=== PATIENT | female | born 1980 | race African-American/Black ===

== ENCOUNTER 2017-03-19 11:45 | Emergency (ER) | payer MEDICAID ==
[~2017-03-19] VITALS: Ht 160 cm; Wt 90.7 kg
--- NOTE | 2017-03-19 11:50 | NUR ---
C/O DIZZINESS, + NAUSEA, TINGLING SENSATION TO R UPPER EXTREMITY. PATIENT A/OX 4. BREATHING EVEN AND UNLABORED. NO SOB. VITALS STABLE. SAFETY AND COMFORT MEASURES IN PLACE. AWAITING MD ORDERS.
[2017-03-19] MEDS ORDERED: MECLIZINE HCL 25 MG TABLET PO ONE (12:30)
[2017-03-19] MEDS ORDERED: ONDANSETRON 4 MG TAB.RAPDIS SL ONE (12:30)
[2017-03-19] MEDS ORDERED: ONDANSETRON 4 MG TAB.RAPDIS ONE (12:39)
[2017-03-19] MEDS ORDERED: MECLIZINE HCL 25 MG TABLET ONE (12:39)
--- NOTE | 2017-03-19 13:23 | NUR ---
URINE OBTAINED AND SENT TO LAB.
[2017-03-19 13:31] LABS: APPEARANCE,URINE Clear (CLEAR); BILIRUBIN,URINE Negative (NEGATIVE); BLOOD, URINE Negative Ery/uL (NEGATIVE); COLOR,URINE Yellow (YELLOW); KETONES,URINE Negative (NEGATIVE); LEUKOCYTE ESTERASE ,URINE Negative (NEGATIVE); NITRITE, URINE Negative (NEGATIVE); PROTEIN,URINE Negative (NEGATIVE); UGLUCOSE Negative (NEGATIVE); UROBILINOGEN,URINE 0.2 EU/dL (0.2)
--- NOTE | 2017-03-19 13:59 | NUR ---
PATIENT STATING MEDICATION HAS HELPED WITH THE DIZZINESS AND NAUSEA. FEELS COMFORTABLE TO GO HOME. JOSE ARZOLA INFORMED.
[2017-03-19 14:05] VITALS: BP 134/76
--- NOTE | 2017-03-19 14:06 | NUR ---
Patient discharged to home in stable condition. Written and verbal after care instructions given. Patient verbalizes understanding of instruction.
== END 2017-03-19 14:06 | disposition home or self-care (01) ==
LOC: ER 11:50
DX: H81.10 Benign paroxysmal vertigo, unspecified ear (principal); J45.909 Unspecified asthma, uncomplicated; Z88.1 Allergy status to other antibiotic agents
CPT/HCPCS: 81001; 82962; 84703; 93005; 99285; A4606; J8597; Q0162; Z7610; 81000-TC